=== PATIENT | male | born 1985 | race Caucasian/White ===

== ENCOUNTER 2017-07-31 14:45 | Inpatient (IN) | payer OTHER ==
[~2017-07-31] VITALS: Ht 185.4 cm; Wt 110.3 kg
[2017-07-31] MEDS ORDERED: ACETAMINOPHEN 325 MG TAB PO PRN (18:00)
[2017-07-31] MEDS ORDERED: SODIUM CHLORIDE 0.9% FLUSH 10 ML FLUSH IV FLUSH PRN (18:00)
[2017-07-31] MEDS ORDERED: ONDANSETRON HCL 4 MG/2 ML VIAL IV PUSH PRN (18:00)
[2017-07-31 18:22] VITALS: BP 136/77; PULSE 88; RESP 20; TEMP 97.5; O2SAT 97
[2017-07-31] MEDS: MORPHINE SULFATE 4 MG/ML INJ IV PUSH PRN ×2 (18:27→22:33)
[2017-07-31] MEDS: SODIUM CHLOR 0.9% 1000 ML INJ 1,000 ML IV SCH (18:30)
[2017-07-31] MEDS: CIPROFLOXACIN 400 MG PREMIX 200 ML IV SCH (18:32)
[2017-07-31] MEDS: SODIUM CHLORIDE 0.9% FLUSH 10 ML FLUSH IV FLUSH SCH (19:49)
[2017-07-31 20:15] VITALS: BP 146/98; PULSE 107; RESP 18; TEMP 99.6; O2SAT 97
[2017-07-31] MEDS: ACETAMINOPHEN/HYDROcodone 325 MG/5 MG TAB PO PRN (20:29)
[2017-07-31] MEDS: metroNIDAZOLE 500 MG INJ 100 ML IV SCH (20:29)
[2017-08-01] VITALS: BP 139/89; PULSE 98; RESP 16; TEMP 98.7; O2SAT 98
[2017-08-01] MEDS: ACETAMINOPHEN/HYDROcodone 325 MG/5 MG TAB PO PRN ×3 (00:36→08:42)
[2017-08-01] MEDS ORDERED: ONDANSETRON ODT 4 MG TAB PO PRN (01:45)
[2017-08-01] MEDS: metroNIDAZOLE 500 MG INJ 100 ML IV SCH (02:41)
[2017-08-01] MEDS: MORPHINE SULFATE 4 MG/ML INJ IV PUSH PRN ×2 (02:42→06:28)
[2017-08-01] MEDS: SODIUM CHLOR 0.9% 1000 ML INJ 1,000 ML IV SCH (04:37)
[2017-08-01] MEDS: CIPROFLOXACIN 400 MG PREMIX 200 ML IV SCH (04:38)
[2017-08-01 04:42] VITALS: RESP 16
[2017-08-01 07:16] LABS: AUTOMATED NEUTROPHIL # 12.9 TH/MM3 (1.8-7.7); BASOPHIL # 0.1 TH/MM3 (0-0.2); BASOPHIL % 0.5 % (0.0-2.0); EOSINOPHIL # 0.2 TH/MM3 (0-0.4); EOSINOPHIL % 1.1 % (0.0-4.0); HEMATOCRIT 40.8 % (39.0-51.0); HEMOGLOBIN 13.9 GM/DL (13.0-17.0); LYMPH % 8.8 % (9.0-44.0); LYMPHOCYTE # 1.4 TH/MM3 (1.0-4.8); MEAN CELL VOLUME 96.4 FL (80.0-100.0); MEAN CORPUSCULAR HGB CONC 34.2 % (32.0-36.0); MEAN PLATELET VOLUME 9.1 FL (7.0-11.0); MONO % 8.6 % (0.0-8.0); MONOCYTE # 1.4 TH/MM3 (0-0.9); PLATELET COUNT 219 TH/MM3 (150-450); RED BLOOD COUNT 4.23 MIL/MM3 (4.50-5.90); RED CELL DISTRIBUTION WIDTH 12.9 % (11.6-17.2)
[2017-08-01 07:29] LABS: CALCIUM 8.3 MG/DL (8.5-10.1)
[2017-08-01 07:30] LABS: BICARBONATE 27.6 MEQ/L (21.0-32.0)
[2017-08-01 08:00] VITALS: BP 127/74; PULSE 69; RESP 16; TEMP 96.8; O2SAT 98
[2017-08-01] MEDS: SODIUM CHLORIDE 0.9% FLUSH 10 ML FLUSH IV FLUSH SCH (08:24)
[2017-08-01] MEDS ORDERED: HYDR-3288 PO (08:47)
[2017-08-01] MEDS ORDERED: CIPR-9 PO (08:47)
[2017-08-01] MEDS ORDERED: METR-1 PO (08:47)
--- NOTE | 2017-08-01 08:49 | HHI.DCPOC ---
Discharge Care Plan Diagnosis: (1) Diverticulitis Goals to Promote Your Health * To prevent worsening of your condition and complications * To maintain your health at the optimal level Directions to Meet Your Goals Take your medications as prescribed Follow your dietary instruction Follow activity as directed Keep your appointments as scheduled Take your immunizations and boosters as scheduled If your symptoms worsen call your PCP, if no PCP go to Urgent Care Center or Emergency Room Smoking is Dangerous to Your Health. Avoid second hand smoke Call the 24-hour hour crisis hotline for domestic abuse at Emilio Mares August 01, 2017 08:48
--- NOTE | 2017-08-01 09:02 | HHI.HP ---
HPI Service [facility] Primary Care Physician No Primary Care Physician Admission Diagnosis Diagnoses: (1) Sepsis Diagnosis: Principal (2) Diverticulitis Diagnosis: Principal (3) Leukocytosis Diagnosis: Principal Chief Complaint: Abdominal pain Travel History International Travel<30 Days: No Contact w/Intl Traveler <30 Da: No Sepsis Criteria SIRS Criteria (2 or more): Heart rate over 90, WBC > 82771, < 4000 or > 10% bands Sepsis Criteria (SIRS+source): Infect source susp/known Criteria Outcome: Meets sepsis criteria History of Present Illness 32-year-old male with no chronic medical illnesses who presented the hospital because of abdominal pain. Patient states that he went on a camping trip with his son on Tuesday and when he got home he started developing some abdominal discomfort. He thought he may have been constipated so he took a laxative without any significant improvement. Later on evening and Tuesday he took some magnesium citrate without any significant relief. On Tuesday he started developing severe pain in his abdomen with sharp stabbing sensation which was a 9/10 on a pain scale. Patient went to emergency department for evaluation and found to have septic criteria with leukocytosis, tachycardia, CT finding of acute short segment diverticulitis. Because of that reason it was recommended by the ER physician that the patient be admitted for further evaluation and management. Patient was admitted to the hospital with IV antibiotics, IV fluids, clear liquid diet. Patient tolerated treatment well, no longer signs of any sepsis. Patient states that his pain is much improved. He did have a bowel movement today with improvement of his abdominal discomfort. Patient is very eager to go home. Clinically the patient is stable. No further signs of sepsis we will plan discharge accordingly. Review of Systems Gastrointestinal: COMPLAINS OF: Abdominal pain Except as stated in HPI: all other systems reviewed are Neg Past Family Social History Past Medical History No chronic medical illnesses Past Surgical History Umbilical hernia repair Reported Medications No chronic medication Allergies: Coded Allergies: No Known Allergies (Unverified , 07/31/17) Family History Family history was reviewed and patient indicates mother had abdominal problems with abdominal mass removal, perforated ulcer. Social History Patient states that he smoked about 1 pack of cigarettes a week since he was 17 years old. Does drink alcohol approximately 2-3 times weekly. Denies any illicit drugs. Physical Exam Vital Signs Vital Signs Date Time Temp Pulse Resp B/P (MAP) Pulse Ox O2 Delivery O2 Flow Rate FiO2 08/01/17 08:00 96.8 69 16 127/74 (91) 98 08/01/17 06:57 16 08/01/17 05:38 16 08/01/17 04:42 16 08/01/17 00:00 98.7 98 16 139/89 (106) 98 07/31/17 20:15 99.6 107 18 146/98 (114) 97 07/31/17 18:22 97.5 88 20 136/77 (96) 97 Physical Exam GENERAL: Well-developed, well-nourished, in no acute distress. alert and orientated HEENT: Head is normocephalic without any lesions or masses noted. Facial features are symmetric. Eyes: Pupils equal round reactive to light. Extraocular muscles are intact. Conjunctivae were clear. Oropharyngeal: Pharynx without any erythema edema. Tongue is midline without deviation. Buccal mucosa is moist without any masses or lesions NECK: Supple without any masses. Trachea midline no deviation. No JVD, no bruits are appreciated CARDIAC: Regular rhythm, regular rate. S1/S2 are heard. No murmurs gallops or rubs. LUNGS: Clear to auscultation bilaterally. No wheeze, rhonchi or rales. No use of accessory muscles on inspiration or expiration. ABDOMEN: Soft, mild tenderness noted in the left lower quadrant.. Nondistended. Bowel sounds heard in all 4 quadrants. No organomegaly or masses. Negative rebound, negative guarding EXTREMITIES: No edema, pulses are equal bilaterally. No cyanosis or clubbing NEUROLOGY: Mood and affect appear appropriate. Cranial nerves II through XII grossly intact. Muscle strength 5/5 in upper and lower extremities bilaterally. Deep tendon reflexes are 2+ in upper and lower extremities bilaterally. Laboratory Laboratory Tests Test 08/01/17 06:20 White Blood Count 16.0 Red Blood Count 4.23 Hemoglobin 13.9 Hematocrit 40.8 Mean Corpuscular Volume 96.4 Mean Corpuscular Hemoglobin 33.0 Mean Corpuscular Hemoglobin Concent 34.2 Red Cell Distribution Width 12.9 Platelet Count 219 Mean Platelet Volume 9.1 Neutrophils (%) (Auto) 81.0 Lymphocytes (%) (Auto) 8.8 Monocytes (%) (Auto) 8.6 Eosinophils (%) (Auto) 1.1 Basophils (%) (Auto) 0.5 Neutrophils # (Auto) 12.9 Lymphocytes # (Auto) 1.4 Monocytes # (Auto) 1.4 Eosinophils # (Auto) 0.2 Basophils # (Auto) 0.1 CBC Comment DIFF FINAL Differential Comment Blood Urea Nitrogen 6 Creatinine 1.00 Random Glucose 97 Calcium Level 8.3 Sodium Level 138 Potassium Level 3.9 Chloride Level 106 Carbon Dioxide Level 27.6 Anion Gap 4 Estimat Glomerular Filtration Rate 87 Date/Time Source Procedure Growth Status 07/31/17 18:40 Blood Peripheral Aerobic Blood Culture Pending Received 07/31/17 18:40 Blood Peripheral Anaerobic Blood Culture Pending Received Result Diagram: 08/01/1761908/01/1720 Septic Shock Reassessment Septic shock perfusion: reassessment completed Caprini VTE Risk Assessment Caprini VTE Risk Assessment: No/Low Risk (score <= 1) Caprini Risk Assessment Model Point Value = 1 Point Value = 2 Point Value = 3 Point Value = 5 Age 41-60 Minor surgery BMI > 25 kg/m2 Swollen legs Varicose veins or History of unexplained or recurrent spontaneous Oral contraceptives or hormone replacement Sepsis (< 1 month) Serious lung disease, including pneumonia (< 1 month) Abnormal pulmonary function Acute myocardial infarction Congestive heart failure (< 1 month) History of inflammatory bowel disease Medical patient at bed rest Age 61-74 Arthroscopic surgery Major open surgery (> 45 min) Laparoscopic surgery (> 45 min) Malignancy Confined to bed (> 72 hours) Immobilizing plaster cast Central venous access Age >= 75 History of VTE Family history of VTE Factor V Leiden Prothrombin [id number] Lupus anticoagulant Anticardiolipin antibodies Elevated serum homocysteine Heparin-induced thrombocytopenia Other congenital or acquired thrombophilia Stroke (< 1 month) Elective arthroplasty Hip, pelvis, or leg fracture Acute spinal cord injury (< 1 month) Prophylaxis Regimen Total Risk Factor Score Risk Level Prophylaxis Regimen 0-1 Low Early ambulation 2 Moderate Order ONE of the following: *Sequential Compression Device (SCD) *Heparin 5000 units SQ BID 3-4 Higher Order ONE of the following medications: *Heparin 5000 units SQ TID *Enoxaparin/Lovenox 40 mg SQ daily (WT < 150 kg, CrCl > 30 mL/min) *Enoxaparin/Lovenox 30 mg SQ daily (WT < 150 kg, CrCl > 10-29 mL/min) *Enoxaparin/Lovenox 30 mg SQ BID (WT < 150 kg, CrCl > 30 mL/min) AND/OR *Sequential Compression Device (SCD) 5 or more Highest Order ONE of the following medications: *Heparin 5000 units SQ TID (Preferred with Epidurals) *Enoxaparin/Lovenox 40 mg SQ daily (WT < 150 kg, CrCl > 30 mL/min) *Enoxaparin/Lovenox 30 mg SQ daily (WT < 150 kg, CrCl > 10-29 mL/min) *Enoxaparin/Lovenox 30 mg SQ BID (WT < 150 kg, CrCl > 30 mL/min) AND *Sequential Compression Device (SCD) Assessment and Plan Assessment and Plan Sepsis resolved -Patient met criteria with leukocytosis, tachycardia, diverticulitis -Patient was started on empirical antibiotics include Cipro and Flagyl -Blood cultures are pending Diverticulitis -CT scan indicates short segment of sigmoid diverticulitis -Patient is on Cipro/Flagyl -Pain has improved, continue pain control -IV fluids -Low residual diet DVT prevention -Low risk, early ambulation Discharge disposition Discharge home in stable condition Activity: Ad tong. Diet: Low residual diet Medication per medication reconciliation Follow-up with primary medical doctor in 1 week Emilio Mares August 01, 2017 09:02
== END 2017-08-01 10:06 | disposition home or self-care (01) | DRG 872 ==
LOC: PHEDDLT 17:24 → PH3A 17:35
PROVIDERS: ADMIT Hospitalist; ATTEND Hospitalist
DX: A41.9 Sepsis, unspecified organism (principal); K57.32 Diverticulitis of large intestine without perforation or abscess without bleeding; F17.210 Nicotine dependence, cigarettes, uncomplicated
CPT/HCPCS: 80048; 85025; 87040; J0744; J2270; J7030